=== PATIENT | female | born 1985 | race Asian ===

== ENCOUNTER 2017-12-13 12:38 | Emergency (ER) | payer SELFPAY ==
[2017-12-13 13:32] LABS: ABS Basophils 0 10^3/ul (0-0.2); ABS Eosinophils 0.1 10^3/ul (0-0.6); ABS Lymphocytes 1.8 10^3/ul (1.0-4.8); ABS Monocytes 0.4 10^3/ul (0-0.8); ABS Neutrophils 4.8 10^3/ul (1.5-7.7); ABS Nucleated RBC 0 10^3/ul; Eosinophil % 1.9 % (0-6); Hematocrit 37 % (35-47); Hemoglobin 12.7 g/dl (12.0-16.0); Lymphocyte % 25.2 % (25-47); Mean Corpuscular HGB Conc 34 g/dl (31-36); Mean Corpuscular Hemoglobin 33 pg (27-31); Mean Corpuscular Volume 96 fL (80-97); Mean Platelet Volume 7.5 um3 (7.4-10.4); Nucleated Red Blood Cells % 0; Platelet Count 222 10^3/ul (150-450); Red Blood Count 3.89 10^6/ul (4.0-5.4); Red Cell Distribution Width 13 % (10.5-15); White Blood Count 7.1 10^3/ul (3.5-10.8)
[2017-12-13 13:49] LABS: EGFR Non-African American 141.6 (>60)
--- NOTE | 2017-12-13 14:22 | ED ---
- HPI Summary HPI Summary: Patient is a 32-year-old female who presents emergency department for vaginal spotting 3 days. Patient states she is roughly 8 weeks . She is not yet seen her OB for this or is had a confirmed intrauterine . She denies abdominal pain, urinary symptoms. A0. Symptoms are moderate in severity. Pt. states she is returning to her hometown in [place] in 6wks and is waiting till then to see her OB. - History of Current Complaint Chief Complaint: EDOBProblems Stated Complaint: OB PROBLEM Time Seen by Provider: 12/13/17 13:34 Hx Obtained From: Patient Pain Intensity: 0 - Allergies/Home Medications Allergies/Adverse Reactions: Allergies Allergy/AdvReac Type Severity Reaction Status Date / Time grass pollen Allergy Mild Sneezing Verified 12/13/17 13:50 Home Medications: Home Medications NK [No Home Medications Reported] 12/13/17 [History Confirmed 12/13/17] PMH/Surg Hx/FS Hx/Imm Hx Previously Healthy: Yes Infectious Disease History: No Infectious Disease History: Denies: Traveled Outside the in Last 30 Days - Social History Occupation: Unemployed Lives: With Family Alcohol Use: None Substance Use Type: Reports: None Smoking Status (MU): Never Smoked Tobacco Review of Systems Constitutional: Negative Eyes: Negative ENT: Negative Cardiovascular: Negative Respiratory: Negative Gastrointestinal: Negative Positive: other - Vaginal spotting. Negative: burning, dysuria, flank pain Neurological: Negative All Other Systems Reviewed And Are Negative: Yes Physical Exam - Physical Exam Triage Information Reviewed: Yes Vital Signs Reviewed: Yes Appearance: Positive: Well-Appearing - Patient sitting up in bed in no acute distress. Pleasant. Head/Face: Positive: Normal Head/Face Inspection Eyes: Positive: Normal, SVETA Neck: Positive: Supple Respiratory/Lung Sounds: Positive: Clear to Auscultation, Breath Sounds Present Cardiovascular: Positive: Normal, RRR Abdomen Description: Positive: Nontender, Soft Neurological: Positive: Normal Psychiatric: Positive: Normal Diagnostics - Vital Signs Vital Signs Temp Pulse Resp BP Pulse Ox 12/13/17 12:42 99.5 F 106 16 137/81 98 - Laboratory Lab Results: Lab Results 12/13/17 12/13/17 12/13/17 Range/Units 13:22 13:22 13:22 WBC 7.1 (3.5-10.8) 10^3/ul RBC 3.89 L (4.0-5.4) 10^6/ul Hgb 12.7 (12.0-16.0) g/dl Hct 37 (35-47) % MCV 96 (80-97) fL MCH 33 H (27-31) pg MCHC 34 (31-36) g/dl RDW 13 (10.5-15) % Plt Count 222 (150-450) 10^3/ul MPV 7.5 (7.4-10.4) um3 Neut % (Auto) 66.6 (38-83) % Lymph % (Auto) 25.2 (25-47) % Hendry % (Auto) 5.8 (0-7) % Eos % (Auto) 1.9 (0-6) % Baso % (Auto) 0.5 (0-2) % Absolute Neuts (auto) 4.8 (1.5-7.7) 10^3/ul Absolute Lymphs (auto) 1.8 (1.0-4.8) 10^3/ul Absolute Monos (auto) 0.4 (0-0.8) 10^3/ul Absolute Eos (auto) 0.1 (0-0.6) 10^3/ul Absolute Basos (auto) 0 (0-0.2) 10^3/ul Absolute Nucleated RBC 0 10^3/ul Nucleated RBC % 0 Sodium 138 L (139-145) mmol/L Potassium 3.8 (3.5-5.0) mmol/L Chloride 104 (101-111) mmol/L Carbon Dioxide 26 (22-32) mmol/L Anion Gap 8 (2-11) mmol/L BUN 8 (6-24) mg/dL Creatinine 0.51 (0.51-0.95) mg/dL Est GFR ( Amer) 182.1 (>60) Est GFR (Non-Af Amer) 141.6 (>60) BUN/Creatinine Ratio 15.7 (8-20) Glucose 115 H (70-100) mg/dL Calcium 9.6 (8.6-10.3) mg/dL Total Bilirubin 0.30 (0.2-1.0) mg/dL AST 18 (13-39) U/L ALT 15 (7-52) U/L Alkaline Phosphatase 25 L (34-104) U/L Total Protein 7.3 (6.4-8.9) g/dL Albumin 4.7 (3.2-5.2) g/dL Globulin 2.6 (2-4) g/dL Albumin/Globulin Ratio 1.8 (1-3) Blood Type A Positive Antibody Screen Negative Result Diagrams: 12/13/17 13:22 12/13/17 13:22 Lab Statement: Any lab studies that have been ordered have been reviewed, and results considered in the medical decision making process. Course/Dx - Course Course Of Treatment: Patient presenting to the ER for vaginal bleeding in early . Blood work and ultrasound were ordered since she has not had yet a confirmed intrauterine . Vital signs are stable. Blood work shows stable H&H, a positive blood type, beta hCG 6,235. Ultrasound reading per radiology: IMPRESSION: EARLY INTRAUTERINE GESTATION AT APPROXIMATELY 6 WEEKS. SUGGEST SONOGRAPHIC. FOLLOW-UP AND SERIAL BETA-HCGS TO ASSESS FOR VIABILITY. Results were discussed with patient. Encourage her to call the on-call OB for a close follow-up appointment. Repeat beta hCG in 48 hours. To return to the ER for abdominal pain, increased bleeding, lightheadedness, dizziness or if concerned. Patient understands and agrees with plan. - Differential Diagnosis/HQI/PQRI: Missed , Spontaneous , Threatened , Ectopic - Diagnoses Provider Diagnoses: Threatened Discharge - Sign-Out/Discharge Documenting (check all that apply): Discharge/Admit/Transfer - Discharge Plan Condition: Good Disposition: HOME Patient Education Materials: Threatened Miscarriage (ED) Referrals: Lubna Degroot MD [Medical Doctor] - No Primary Care Phys,NOPCP [Primary Care Provider] - Additional Instructions: Call Dr. Degroot's office tomorrow for an appointment Repeat level in 48 hours Return to ER if symptoms change or worsen - Billing Disposition and Condition Condition: GOOD Disposition: HOME
--- NOTE | 2017-12-13 15:11 | RAD ---
INDICATION: Early with bleeding COMPARISON: None TECHNIQUE: Transvaginal scans were performed for patency determination. FINDINGS: There is an early intrauterine gestation with identification of the pole and yolk sac. There are faint cardiac pulsations but it is difficult to get an accurate tracing. Follow-up will be required. The gestational sac size corresponds to a 5 week 6 day gestation and the crown-rump length to a 6 week 2 day gestation. The NANCY is July 24, 2016. The right ovary measures 2.2 x 2.8 x 1.6 centers in the left 3.3 x 2.5 x 1.7 cm. There are small follicles bilaterally. IMPRESSION: EARLY INTRAUTERINE GESTATION AT APPROXIMATELY 6 WEEKS. SUGGEST SONOGRAPHIC FOLLOW-UP AND SERIAL BETA-HCGS TO ASSESS FOR VIABILITY.
[2017-12-13 15:56] LABS: Urine Appearance Clear; Urine Blood 3+ (Negative); Urine Color Yellow; Urine Ketones Negative (Negative); Urine Protein Negative (Negative); Urine Red Blood Cell 1+(3-5/hpf) (Absent); Urine Specific Gravity 1.005 (1.010-1.030); Urine Urobilinogen Negative (Negative); Urine White Blood Cell 2+(11-20/hpf) (Absent)
[2017-12-13 16:30] VITALS: BP 130/78
== END 2017-12-13 16:29 | disposition home or self-care (01) ==
LOC: ED 12:38
DX: O20.0 Threatened abortion (principal); Z3A.08 8 weeks gestation of pregnancy
CPT/HCPCS: 36415; 76817; 80053; 81003; 81015; 84702; 85025; 86850; 86900; 86901; 87077; 87086; 99282